=== PATIENT | female | born 1975 | race Hispanic/Latino ===

== ENCOUNTER 2021-02-05 12:00 | Emergency (ER) | payer SELFPAY ==
[2021-02-05] MEDS ORDERED: IBUPROFEN 600 MG TAB PO ONE (12:28)
[2021-02-05] MEDS ORDERED: SULFAMETHOXAZOLE/TRIMETHOPRIM 800/160MG DS TAB PO ONE (12:28)
[2021-02-05] MEDS ORDERED: LIDOCAINE 1%/EPINEPHRINE 1:100,000 VIAL (20 ML) INFILTRATI ONE (12:28)
[2021-02-05] MEDS ORDERED: TETANUS,DIPH,PERTUSS(ACELL) VACCINE 0.5 ML SYRINGE IM ONE (12:28)
[2021-02-05] MEDS ORDERED: cephALEXin 500 MG CAP PO ONE (12:28)
[2021-02-05] MEDS ORDERED: HYDROcodone/ACETAMINOPHEN 5-325 MG TAB PO ONE (12:28)
--- NOTE | 2021-02-05 12:42 | Emergency Department Report ---
Abscess Boil HPI - HPI Chief Complaint: Skin/Abscess/Foreign Body Stated Complaint: CYST ON HIP Time Seen by Provider: 02/05/21 12:18 Duration: >1 Week Location: Lower Extremity Severity: Severe History: Yes Pain, No Fever, No Purulent Drainage, No Numbness, No Foreign Body, No Previous History, No Insect Bite HPI: Chief complaint: I have a boil on right cheek. HPI: This is a 45-year-old female with no significant past medical history presents with abscess on her right buttock for 1 week. His become large and painful. She denies trauma. Denies insect bite. No fever. She had a boil 1 year ago on the left cheek that resolved spontaneously. She denies diabetes mellitus. She does not have chronic medical conditions. She not take any medication [id number]. Unknown tetanus status. Home Medications: Previous Rx's Medication Instructions Recorded Last Taken Type HYDROcodone/APAP 5-325 [[place] 1 each PO Q6H PRN #10 tablet 02/05/21 Unknown Rx 5/325] Ibuprofen [Motrin 800 MG tab] 800 mg PO Q8HR PRN #20 tablet 02/05/21 Unknown Rx Sulfamethoxazole/Trimethoprim 1 each PO BID 7 Days #14 tablet 02/05/21 Unknown Rx [Bactrim DS TAB] cephALEXin [Keflex] 500 mg PO TID 7 Days #21 capsule 02/05/21 Unknown Rx Allergies/Adverse Reactions: Allergies Allergy/AdvReac Type Severity Reaction Status Date / Time No Known Allergies Allergy Unverified 02/05/21 12:09 ED Review of Systems ROS: Stated complaint: CYST ON HIP Other details as noted in HPI Constitutional: denies: fever, malaise Respiratory: denies: cough, shortness of breath Cardiovascular: denies: chest pain Skin: rash, lesions Neurological: denies: numbness, paresthesias ED Past Medical Hx - Past Medical History Previous Medical History?: No - Surgical History Past Surgical History?: Yes Additional Surgical History: c section - Social History Smoking Status: Never Smoker Substance Use Type: None - Medications Home Medications: Home Medications Medication Instructions Recorded Confirmed Last Taken Type HYDROcodone/APAP 5-325 [[place] 1 each PO Q6H PRN #10 tablet 02/05/21 Unknown Rx 5/325] Ibuprofen [Motrin 800 MG tab] 800 mg PO Q8HR PRN #20 tablet 02/05/21 Unknown Rx Sulfamethoxazole/Trimethoprim 1 each PO BID 7 Days #14 tablet 02/05/21 Unknown Rx [Bactrim DS TAB] cephALEXin [Keflex] 500 mg PO TID 7 Days #21 capsule 02/05/21 Unknown Rx ED Abscess Boil Physical Exam - Exam General: Vital signs noted. No distress. Alert and acting appropriately. Size: >5 cm (8 cm) Exam: Yes Tenderness, Yes Fluctuance, Yes Normal Neurologic Exam, Yes Normal Circulation, No Surrounding Cellulites/Erythema, No Lymphangitis, No Crepitation I & D Note - I & D Note I & D Note: Verbal informed consent obtained. Betadine preparation. 1% lidocaine epinephrine 10 mL regional anesthesia. 11. Blade used to make a 2 cm vertical incision, 40 cc of pus expressed, 15 cm of 1 inch iodoform used to pack. ED Course Vital Signs 02/05/21 02/05/21 12:09 12:23 Temperature 98.6 F Pulse Rate 123 H Respiratory 18 Rate Blood Pressure 146/89 O2 Sat by Pulse 98 98 Oximetry Critical care attestation.: If time is entered above; I have spent that time in minutes in the direct care of this critically ill patient, excluding procedure time. ED Medical Decision Making - Medical Decision Making Large 8 cm buttock abscess with successful incision and drainage performed. Patient received Tdap booster as well as ibuprofen [place] Bactrim Keflex in emergency department. Patient instructed return in 3 days for packing change. Prescribed [place] ibuprofen Bactrim Keflex. Referred to outpatient physician as needed. ED Disposition Clinical Impression: Abscess of buttock, right Disposition: 01 HOME / SELF CARE / HOMELESS Is pt being admited?: No Does the pt Need Aspirin: No Condition: Stable Instructions: Incision and Drainage, Care After, Skin Abscess, [id number] Prescriptions: Sulfamethoxazole/Trimethoprim [Bactrim DS TAB] 1 each PO BID 7 Days #14 tablet cephALEXin [Keflex] 500 mg PO TID 7 Days #21 capsule Ibuprofen [Motrin 800 MG tab] 800 mg PO Q8HR PRN #20 tablet PRN Reason: Pain, Moderate (4-6) HYDROcodone/APAP 5-325 [[place] 5/325] 1 each PO Q6H PRN #10 tablet PRN Reason: Pain Referrals: RUDDY SCHROEDER MD [Staff Physician] - 3-5 Days
[2021-02-05 13:24] VITALS: BP 159/92
== END 2021-02-05 13:25 | disposition home or self-care (01) ==
LOC: ED 12:00
DX: L02.31 Cutaneous abscess of buttock (principal); Z98.890 Other specified postprocedural states; Z79.899 Other long term (current) drug therapy
CPT/HCPCS: 90471; 90715; 96372; 99282

== ENCOUNTER 2021-02-09 14:04 | Emergency (ER) | payer SELFPAY ==
[2021-02-09 14:10] VITALS: BP 186/89
--- NOTE | 2021-02-09 15:56 | Emergency Department Report ---
ED General Adult HPI - General Chief complaint: Laceration/Recheck/Suture Stated complaint: PACKING REMOVAL Time Seen by Provider: 02/09/21 15:24 Source: patient Mode of arrival: Ambulatory Limitations: No Limitations - History of Present Illness Initial comments: 45-year-old -[place] female patient presents for wound recheck and packing removal today. Patient was seen here 02/05/2021 had an incision and drainage performed. She states her wound appears to be healing well and denies any increased pain, increased swelling, redness, or fever/chills/sweats. She states compliance with Keflex and Bactrim antibiotics. - Related Data Previous Rx's Medication Instructions Recorded Last Taken Type HYDROcodone/APAP 5-325 [[place] 1 each PO Q6H PRN #10 tablet 02/05/21 Unknown Rx 5/325] Ibuprofen [Motrin 800 MG tab] 800 mg PO Q8HR PRN #20 tablet 02/05/21 Unknown Rx Sulfamethoxazole/Trimethoprim 1 each PO BID 7 Days #14 tablet 02/05/21 Unknown Rx [Bactrim DS TAB] cephALEXin [Keflex] 500 mg PO TID 7 Days #21 capsule 02/05/21 Unknown Rx Allergies Allergy/AdvReac Type Severity Reaction Status Date / Time No Known Allergies Allergy Verified 02/09/21 14:07 ED Review of Systems ROS: Stated complaint: PACKING REMOVAL Other details as noted in HPI Constitutional: denies: chills, fever, malaise Skin: denies: change in color Neurological: denies: numbness, paresthesias ED Past Medical Hx - Past Medical History Previous Medical History?: No - Surgical History Past Surgical History?: Yes Additional Surgical History: c section - Social History Smoking Status: Never Smoker Substance Use Type: None - Medications Home Medications: Home Medications Medication Instructions Recorded Confirmed Last Taken Type HYDROcodone/APAP 5-325 [[place] 1 each PO Q6H PRN #10 tablet 02/05/21 Unknown Rx 5/325] Ibuprofen [Motrin 800 MG tab] 800 mg PO Q8HR PRN #20 tablet 02/05/21 Unknown Rx Sulfamethoxazole/Trimethoprim 1 each PO BID 7 Days #14 tablet 02/05/21 Unknown Rx [Bactrim DS TAB] cephALEXin [Keflex] 500 mg PO TID 7 Days #21 capsule 02/05/21 Unknown Rx ED Physical Exam - General Limitations: No Limitations General appearance: alert, in no apparent distress - Head Head exam: Present: atraumatic, normocephalic - Eye Eye exam: Present: normal appearance. Absent: scleral icterus - Respiratory Respiratory exam: Absent: respiratory distress - Cardiovascular Cardiovascular Exam: Present: tachycardia (Mild) - Neurological Exam Neurological exam: Present: alert, oriented X3 - Psychiatric Psychiatric exam: Present: normal affect, normal mood - Skin Skin exam: Present: warm, dry, normal color. Absent: intact (Open wound noted to right lower buttock with packing in place; no surrounding cellulitic changes are noted; mild induration and tenderness to palpation is noted; no further purulent drainage noted post packing removal), rash ED Course Vital Signs 02/09/21 02/09/21 02/09/21 14:09 15:55 15:56 Temperature 98.9 F Pulse Rate 116 H 102 H Respiratory 18 Rate Blood Pressure 186/89 O2 Sat by Pulse 94 98 Oximetry ED Medical Decision Making - Medical Decision Making 45-year-old -[place] female patient presents for wound recheck and packing removal today. Patient was seen here 02/05/2021 had an incision and drainage performed. She states her wound appears to be healing well and denies any increased pain, increased swelling, redness, or fever/chills/sweats. She states compliance with Keflex and Bactrim antibiotics. Packing removed. Patient tolerated procedure well without any immediate complications. No signs of cellulitis or worsening infection on exam. Heart rate noted to be elevated. Patient states her heart rate normally runs between 98 and 110 bpm chronically. She also admits to smoking right before she came into the ED today. Heart rate on repeat at 102. She is well-appearing in has no signs of sepsis or worsening infection. Patient stable for discharge home. Discussed continued wound care and signs and symptoms that should prompt immediate return to the ED with patient who verbalizes understanding. Critical care attestation.: If time is entered above; I have spent that time in minutes in the direct care of this critically ill patient, excluding procedure time. ED Disposition Clinical Impression: Encounter for wound re-check Disposition: HOME / SELF CARE / HOMELESS Is pt being admited?: No Condition: Stable Instructions: Incision and Drainage, Care After Referrals: PRIMARY CARE, [Referring] - 3-5 Days Forms: Work/School Release Form(ED)
== END 2021-02-09 16:10 | disposition home or self-care (01) ==
LOC: ED 14:04
DX: Z48.01 Encounter for change or removal of surgical wound dressing (principal)